=== PATIENT | female | born 1960 ===

== ENCOUNTER → 2017-09-20 | Outpatient (CLI) | payer OTHER | LOC: CIMAGING 12:25 | PROVIDERS: ATTEND Family Medicine | DX: Z12.31 Encounter for screening mammogram for malignant neoplasm of breast (principal); Z80.3 Family history of malignant neoplasm of breast ==

== ENCOUNTER → 2017-09-26 | Outpatient (CLI) | payer OTHER | LOC: CIMAGING 12:46 | PROVIDERS: ATTEND Physician Assistant | DX: R92.8 Other abnormal and inconclusive findings on diagnostic imaging of breast (principal) | CPT/HCPCS: 76641-PO ==